=== PATIENT | female | born 1975 | race Caucasian/White ===

== ENCOUNTER 2024-10-24 07:00 | Day surgery (SDC) | payer BC ==
[~2024-10-24 07:00] MED LIST: Sodium Chloride 0.9% 10 ML Syringe FLUSH PRN; Sodium Chloride 0.9% 10 ML Syringe FLUSH SCH
[2024-10-24] MEDS ORDERED: Propofol 200 MG/20 ML SDV ONE (07:28)
[2024-10-24] MEDS ORDERED: Dexamethasone 4 MG/ML 5 ML MDV ONE (07:28)
[2024-10-24] MEDS ORDERED: ceFAZolin 2 GM Vial ONE (07:28)
[2024-10-24] MEDS ORDERED: Lidocaine 2% 5 ML SDV ONE (07:28)
[2024-10-24] MEDS ORDERED: Ketorolac 30 MG/ML SDV ONE (07:28)
[2024-10-24] MEDS ORDERED: Midazolam 1 MG/ML 2 ML SDV ONE (07:28)
[2024-10-24] MEDS ORDERED: fentaNYL 100 MCG/2 ML SDV ONE (07:28)
[2024-10-24] MEDS ORDERED: dexmedeTOMIDine HCl 200 MCG/2 ML SDV ONE (07:29)
[2024-10-24] MEDS ORDERED: Ropivacaine 0.5% 5 MG/ML 30 ML SDV ONE (07:32)
[2024-10-24] MEDS: VANCOmycin 1.25 GM/250 ML 1.25 GM in Premix Bag 1 BAG IV ONE (07:41)
[2024-10-24] MEDS: Acetaminophen 325 MG Tab PO SCH (07:41)
[2024-10-24] MEDS: Pregabalin 25 MG Cap PO SCH (07:41)
[2024-10-24] MEDS: oxyCODONE ER 10 MG TAB.ER PO SCH (07:41)
[2024-10-24] MEDS: Lactated Ringers 1,000 ML IV SCH (07:45)
[2024-10-24] MEDS ORDERED: Ondansetron 4 MG/2 ML SDV IVPUSH PRN (08:23)
[2024-10-24] MEDS ORDERED: HYDROmorphone 0.5 MG/0.5 ML Syringe IVPUSH PRN (08:23)
[2024-10-24] MEDS: Morphine 8 MG, EPINEPHrine 0.3 MG, Cefuroxime 750 MG, Ketorolac 30 MG, Sodium Chloride ... PRN (08:52)
[2024-10-24] MEDS: Tranexamic Acid 1,000 MG/10 ML Vial ONE (08:59)
[2024-10-24] MEDS: VANCOmycin 1 GM SDV ONE (08:59)
[2024-10-24] MEDS: fentaNYL 100 MCG/2 ML SDV IVPUSH PRN (10:02)
[2024-10-24] MEDS: oxyCODONE 5 MG Tab PO PRN (11:22)
== END 2024-10-24 13:47 | disposition home or self-care (01) ==
LOC: JD.SDS 07:00
PROVIDERS: ATTEND Orthopaedic Surgery
DX: M17.11 Unilateral primary osteoarthritis, right knee (principal); K21.9 Gastro-esophageal reflux disease without esophagitis; E66.9 Obesity, unspecified
CPT/HCPCS: 0055T; 27447; 64447; 73560; 97162; A9270; J0171; J0690; J0697; J1100; J1885; J2250; J2272; J2704; J2795; J3010; J3372; J7120; 01402; C1713; C1776; J3490